=== PATIENT | female | born 1945 | race Hispanic/Latino ===

== ENCOUNTER 2018-04-20 17:12 | Emergency (ER) | payer MEDICARE, MEDICAID ==
[2018-04-20 17:13] VITALS: BMI 27.3
--- NOTE | 2018-04-20 17:39 | ED PDOC ---
Arrival/HPI - General Historian: Patient - History of Present Illness Narrative History of Present Illness (Text): 04/20/18 17:33 72 y/o female, pmh including htn/hld/a.fibb/cad/copd, psychiatric history including suicidal ideation and bipolar, allergic to codeine, last tetanus under 5 years ago, [facility] long-term s/p accidentally slipped and fall with head injury x 1 hour. Pt. was throwing the paper waste, turn around, slipped and fall on the posterior head, no LOC, no naus ea/vomiting/diarrhea/neck/back/extremity pain, sustained abrasion to the posterior scalp, no urinary/bowel incontinence/retention, no change in behavior, no other medical or psychological complaints. Past Medical History - Provider Review Nursing Documentation Reviewed: Yes - Infectious Disease Hx of Infectious Diseases: None - Tetanus Immunization Tetanus Immunization: Unknown - Cardiac Hx Hypertension: Yes Other/Comment: cardiac stents 2 yrs ago - Pulmonary Hx Asthma: Yes Hx Chronic Obstructive Pulmonary Disease (COPD): Yes - Neurological Hx Transient Ischemic Attacks (TIA): Yes - HEENT Hx HEENT Disorder: No - Renal Hx Renal Disorder: No - Endocrine/Metabolic Hx Hypothyroidism: Yes Other/Comment: thyroid tumor removed - Hematological/Oncological Hx Cancer: Yes (right breat cancer, malignant thyroid tumor) Hx Chemotherapy: Yes - Integumentary Hx Dermatological Disorder: No - Musculoskeletal/Rheumatological Hx Arthritis: Yes Hx Falls: Yes Hx Rheumatoid Arthritis: Yes - Genitourinary/Gynecological Hx Sexually Transmitted Diseases: No - Psychiatric Hx Depression: Yes Hx Substance Use: No - Surgical History Hx Coronary Stent: Yes (x3) Hx Mastectomy: Yes (right mastectomy) Hx Thyroidectomy: Yes - Anesthesia Hx Anesthesia: Yes Hx Anesthesia Reactions: No - Suicidal Assessment Feels Threatened In Home Enviroment: No Family/Social History - Physician Review Nursing Documentation Reviewed: Yes Family/Social History: Unknown Family HX Smoking Status: Never Smoked Hx Alcohol Use: No Hx Substance Use: No Allergies/Home Meds Allergies/Adverse Reactions: Allergies codeine Allergy (Mild, Verified 04/20/18 17:38) HEADACHE Home Medications: Home Meds Medication Instructions Recorded Confirmed Multivitamin Therapeutic Tab 1 tab PO DAILY 09/30/15 03/18/16 [Thera Tab] Docusate [Colace] 100 mg PO DAILY 03/18/16 03/18/16 Ferrous Sulfate [Ferosul] 325 mg PO TID 03/18/16 03/18/16 Folic Acid 1 mg PO BID 03/18/16 03/18/16 Lisinopril [Zestril] 40 mg PO DAILY 03/18/16 03/18/16 Review of Systems - Review of Systems Constitutional: absent: Fatigue, Fevers Eyes: absent: Vision Changes ENT: absent: Hearing Changes Respiratory: absent: SOB, Cough Cardiovascular: absent: Chest Pain Gastrointestinal: absent: Abdominal Pain, Diarrhea, Nausea, Vomiting Skin: Other (+abrasion). absent: Rash, Pruritis, Skin Lesions, Laceration, Abscess, Ulcer, Cellulitis Neurological: absent: Headache, Dizziness Psychiatric: absent: Anxiety, Depression, Suicidal Ideation Physical Exam Vital Signs Reviewed: Yes Temperature: Afebrile Blood Pressure: Normal Pulse: Regular Respiratory Rate: Normal Appearance: Positive for: Well-Appearing, Non-Toxic, Comfortable Pain Distress: None Mental Status: Positive for: Alert and Oriented X 3 - Systems Exam Head: Present: Abrasion (posterior occipital noted to have superficial approx. 1.5cm superficial abrasion with no bony tenderness or deformityf, no laceration wound. ), Other (no facial bony tenderness. ). No: Contusion, Swelling, Ecchymosis, Laceration Pupils: Present: PERRL Extroacular Muscles: Present: EOMI Conjunctiva: Present: Normal Ears: Present: NORMAL TM, Normal Canal. No: Erythema Mouth: Present: Moist Mucous Membranes Pharnyx: No: ERYTHEMA, EXUDATE, TONSILS ENLARGED Nose (External): Present: Atraumatic. No: Abrasion, Contusion, Laceration Nose (Internal): Present: Normal Inspection, No Active Bleeding. No: Rhinorrhea, Septal Hematoma, Epistaxis Neck: Present: Normal Range of Motion, Trachea Midline. No: Meningeal Signs, MIDLINE TENDERNESS, Paraspinal Tenderness, Lymphadenopathy Respiratory/Chest: Present: Clear to Auscultation, Good Air Exchange. No: Respiratory Distress, Accessory Muscle Use Cardiovascular: Present: Regular Rate and Rhythm, Normal S1, S2. No: Murmurs Abdomen: No: Tenderness, Distention, Peritoneal Signs, Rebound, Guarding Back: Present: Normal Inspection. No: CVA Tenderness, Midline Tenderness, Paraspinal Tenderness, Pain with Leg Raise, Decubitus Ulcer Upper Extremity: Present: Normal Inspection, Normal ROM, NORMAL PULSES, Neurovascularly Intact. No: Cyanosis, Edema, Tenderness, Swelling, Deformity Lower Extremity: Present: Normal Inspection, NORMAL PULSES, Normal ROM, Neurovascularly Intact, Capillary Refill < 2 s. No: Edema, Rj's Sign, Tenderness, Swelling, Deformity, Temperature Abnormalties Neurological: Present: GCS=15, CN II-XII Intact, Speech Normal, Motor Func Grossly Intact, Memory Normal Skin: Present: Warm, Dry, Normal Color. No: Rashes Psychiatric: Present: Alert, Oriented x 3, Normal Insight, Normal Concentration Medical Decision Making ED Course and Treatment: 04/20/18 17:40 -CT head -Wound irrigated with normal saline, clean with betadine, bacitracin and gauze dressing. -Observe and reassess 04/20/18 17:56 -EKG performed in the ER by the tech as the patient has no cardiopulmonary complaints: NSR @ 85 BPM, Left axis deviation, no ST elevation or depression, no T wave inversion. 04/20/18 18:53 -CT Head: No acute intracranial abnormality. Mild right parietal soft tissue swelling. Severe chronic microangiopathic changes and mild age-related global parenchymal volume loss. -Pt. has no focal neurological deficits. -Discharge home with bacitracin oinment, take tylenol as needed, ice compression, follow up with your own pmd and neurologist within 2 days, return to the ER for any new or worsening signs or symptoms. - RAD Interpretation Radiology Orders: Date of service: 04/20/2018 PROCEDURE: CT HEAD WITHOUT CONTRAST. HISTORY: head injury, on aspirin, r/o ICH COMPARISON: 10/19/2015. TECHNIQUE: Axial computed tomography images were obtained through the head/brain without intravenous contrast. Radiation dose: Total exam DLP = 985.37 mGy-cm. This CT exam was performed using one or more of the following dose reduction techniques: Automated exposure control, adjustment of the mA and/or kV according to patient size, and/or use of iterative reconstruction technique. FINDINGS: HEMORRHAGE: No intracranial hemorrhage. BRAIN: There are severe chronic microangiopathic changes. 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 There is no mass, mass effect or abnormal extra-axial fluid collection. There is no territorial infarction. The midline sagittal structures are normal. VENTRICLES: There is mild age-related global parenchymal volume loss and proportionate enlar gement of the ventricles and cortical sulci. CALVARIUM: There is no calvarial fracture. There is mild right parietal soft tissue swelling. PARANASAL SINUSES: Predominantly clear. MASTOID AIR CELLS: Predominantly clear. OTHER FINDINGS: None. IMPRESSION: No acute intracranial abnormality. Mild right parietal soft tissue swelling. Severe chronic microangiopathic changes and mild age-related global parenchymal volume loss. Panel Builder: Radiologist - EKG Interpretation EKG Interpretation (Text): 04/20/18 17:57 NSR @ 85 BPM, Left axis deviation, no ST elevation or depression, no T wave inversion. Interpreted by ED Physician: Yes Type: 12 lead EKG - PA / INSOLE BUFFER / Resident Statement MD/DO has reviewed & agrees with the documentation as recorded. Disposition/Present on Arrival - Present on Arrival Any Indicators Present on Arrival: No History of DVT/PE: No History of Uncontrolled Diabetes: No Urinary Catheter: No History of Decub. Ulcer: No History Surgical Site Infection Following: None - Disposition Have Diagnosis and Disposition been Completed?: Yes Diagnosis: Fall, Scalp abrasion Disposition: HOME/ ROUTINE Disposition Time: 18:54 Patient Plan: Discharge Patient Problems: Current Active Problems Problem Status Onset Fall Acute Scalp abrasion Acute Condition: GOOD Additional Instructions: -Discharge home with bacitracin oinment, take tylenol as needed, ice compression, follow up with your own pmd and neurologist within 2 days, return to the ER for any new or worsening signs or symptoms. Prescriptions: Bacitracin Ointment [Bacitracin] 1 appful TOP BID #15 g Referrals: Ravindra Hernández MD [Staff Provider] - Follow up with primary [facility] [place]] - Follow up with primary Forms: WORK NOTE
[2018-04-20] MEDS ORDERED: TDAP Vaccine 0.5 mL Syr IM ONE (17:40)
[2018-04-20 17:44] VITALS: TEMP 98.3
--- NOTE | 2018-04-20 18:53 | CT ---
Date of service: 04/20/2018 PROCEDURE: CT HEAD WITHOUT CONTRAST. HISTORY: head injury, on aspirin, r/o ICH COMPARISON: 10/19/2015. TECHNIQUE: Axial computed tomography images were obtained through the head/brain without intravenous contrast. Radiation dose: Total exam DLP = 985.37 mGy-cm. This CT exam was performed using one or more of the following dose reduction techniques: Automated exposure control, adjustment of the mA and/or kV according to patient size, and/or use of iterative reconstruction technique. FINDINGS: HEMORRHAGE: No intracranial hemorrhage. BRAIN: There are severe chronic microangiopathic changes. 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 There is no mass, mass effect or abnormal extra-axial fluid collection. There is no territorial infarction. The midline sagittal structures are normal. VENTRICLES: There is mild age-related global parenchymal volume loss and proportionate enlargement of the ventricles and cortical sulci. CALVARIUM: There is no calvarial fracture. There is mild right parietal soft tissue swelling. PARANASAL SINUSES: Predominantly clear. MASTOID AIR CELLS: Predominantly clear. OTHER FINDINGS: None. IMPRESSION: No acute intracranial abnormality. Mild right parietal soft tissue swelling. Severe chronic microangiopathic changes and mild age-related global parenchymal volume loss.
[2018-04-20] MEDS ORDERED: Bacitracin 500 Units/gm Oint Foilpak UD ONE (19:03)
[2018-04-20 19:32] VITALS: O2SAT 98
[2018-04-20 23:00] VITALS: BP 155/75; PULSE 80; RESP 20
--- NOTE | 2018-04-21 09:21 | CARD ---
APPROVED REPORT Date of service: 04/20/2018 EKG Measurement Heart [id number] <Conclusion> Normal sinus rhythm with 1st degree AVB Left axis deviation/LAHB PRWP
== END 2018-04-20 22:40 | disposition home or self-care (01) ==
LOC: ED 17:12
DX: S00.01XA Abrasion of scalp, initial encounter (principal); W01.0XXA Fall on same level from slipping, tripping and stumbling without subsequent striking against object, initial encounter; Y92.129 Unspecified place in nursing home as the place of occurrence of the external cause; I10 Essential (primary) hypertension; Z86.73 Personal history of transient ischemic attack (TIA), and cerebral infarction without residual deficits; Z95.5 Presence of coronary angioplasty implant and graft